=== PATIENT | male | born 1945 | race Caucasian/White ===

== ENCOUNTER 2022-12-08 09:54 | Outpatient (CLI) | payer MEDICARE, OTHER, SELFPAY ==
[2022-12-08 12:24] LABS: Hemoglobin A1C 5.7 % (<5.7)
== END 2022-12-08 09:55 | disposition home or self-care (01) ==
PROVIDERS: PCP Family Medicine; Visit Provider Urology
DX: N52.9 Male erectile dysfunction, unspecified (principal); Z01.818 Encounter for other preprocedural examination
CPT/HCPCS: 36415; 83036; 87086

== ENCOUNTER 2022-12-14 00:27 | Day surgery (SDC) | payer MEDICARE, OTHER, SELFPAY ==
[2022-12-08 10:22] VITALS: BP 143/83; PULSE 57; RESP 16; TEMP 36.6; O2SAT 98; BMI 28.5
--- NOTE | 2022-12-08 10:39 | PC.NURSE ---
Report to the Outpatient Waiting Room, entrance under the green pavilion located off [facility], at time __10:00AM on date ___12/14/22____. Planned Procedure Time: __12:00PM . Time changes happen often and if your time is changed the preop area will call you the afternoon before. - You and your visitor will be asked to self-screen and do not enter if you have any COVID symptoms. - Only one visitor is requested with a max of two and NO children visitors are allowed at this time. - The patient visitor may be requested to leave or wait in car when not with patient due to distancing restrictions. - A mask is optional within the hospital at this time. Patients may have clear liquids (water, carbonated beverages, clear teas, apple juice) until 3 hours prior to surgery with a maximum of 20 ounces. - No food from midnight until time of surgery Take the following medications with a SIP of water the morning of surgery: __LEVOFLOXACIN DO NOT STOP ANY OF YOUR OTHER PRESCRIPTION MEDICATIONS PRIOR TO SURGERY ?EXCEPT THE FOLLOWING Medications to discontinue per physician __HOLD ALL VITAMINS/SUPPLEMENTS 3 DAYS PRE-OP Date to take last dose____12/07/22 Please no make-up, nail mozambican, hairspray, perfume, deodorant, or body powder the day of surgery. No jewelry (including any body piercings) or valuables the day of surgery, leave them at home. Please take a shower or bath the night before, or the morning of, surgery with an antibacterial soap. Wear comfortable, loose fitting clothing. Children are encouraged to wear pajamas. - Jewelry must be removed prior to entering the operating room. Rings and piercings that are not removed may be cut off. - The hospital will not accept responsibility for valuables. - Please leave all valuables, including medications, at home the day of surgery. If you are going home after surgery, a licensed auto [place] driver must drive you home. - NO public transportation without another adult if you receive anesthesia. - We recommend that an adult stay with you for 24 hours following discharge. - We also recommend that you do not drive, make important decision, drink alcoholic beverages, or take any drugs that were not prescribed by your health care provider for at least 24 hours after your discharge time. Follow any additional instructions given to you from your surgeon. If you or anyone in your household have experienced Covid symptoms in the past week, please notify your surgeon or the nurse liaison at the phone number below for possible testing. Telephone instructions given to _PATIENT__and asked if any additional questions and then verbalized understanding. Patient advised to call surgeon office or pre surgery nurse liaison [phone] if any additional questions.
--- NOTE | 2022-12-08 10:49 | PC.NURSE ---
Report to the Outpatient Waiting Room, entrance under the green pavilion located off [facility], at time __10:00AM on date __12/14/22 . Planned Procedure Time: __12:00PM . Time changes happen often and if your time is changed the preop area will call you the afternoon before. - You and your visitor will be asked to self-screen and do not enter if you have any COVID symptoms. - Only one visitor is requested with a max of two and NO children visitors are allowed at this time. - The patient visitor may be requested to leave or wait in car when not with patient due to distancing restrictions. - A mask is optional within the hospital at this time. Patients may have clear liquids (water, carbonated beverages, clear teas, apple juice) until 3 hours prior to surgery with a maximum of 20 ounces. - No food from midnight until time of surgery Take the following medications with a SIP of water the morning of surgery: ___LEVOFLOXACIN DO NOT STOP ANY OF YOUR OTHER PRESCRIPTION MEDICATIONS PRIOR TO SURGERY ?EXCEPT THE FOLLOWING Medications to discontinue per physician ___HOLD ASPIRIN 7 DAYS PRE-OP- LAST DOSE 12/07/22, HOLD ALL VITAMINS/SUPPLEMENT 3 DAYS PRE-OP- LAST DOSE 01/07 Please no make-up, nail algerian, hairspray, perfume, deodorant, or body powder the day of surgery. No jewelry (including any body piercings) or valuables the day of surgery, leave them at home. Please take a shower or bath the night before, or the morning of, surgery with an antibacterial soap. Wear comfortable, loose fitting clothing. Children are encouraged to wear pajamas. - Jewelry must be removed prior to entering the operating room. Rings and piercings that are not removed may be cut off. - The hospital will not accept responsibility for valuables. - Please leave all valuables, including medications, at home the day of surgery. If you are going home after surgery, a licensed driver wheelchair must drive you home. - NO public transportation without another adult if you receive anesthesia. - We recommend that an adult stay with you for 24 hours following discharge. - We also recommend that you do not drive, make important decision, drink alcoholic beverages, or take any drugs that were not prescribed by your health care provider for at least 24 hours after your discharge time. Follow any additional instructions given to you from your surgeon. START LEVOFLOXACINON 12/13/22 START NOSE OINTMENT 12/09/22 START HIBICLENS SHOWER 12/11/22 If you or anyone in your household have experienced Covid symptoms in the past week, please notify your surgeon or the nurse liaison at the phone number below for possible testing. Telephone instructions given to __PATIENT and asked if any additional questions and then verbalized understanding. Patient advised to call surgeon office or pre surgery nurse liaison [phone] if any additional questions.
[2022-12-14] VITALS (11 sets, daily range): BP systolic 136–154; BP diastolic 73–90; PULSE 66–96; RESP 13–20; TEMP 36–37.1; O2SAT 92–100
--- NOTE | 2022-12-14 09:28 | ECG_ITS ---
Measurements Intervals [place] Rate: 69 P: 23 WI: 175 QRS: -24 QRSD: 101 T: 21 QT: 394 QTc: 425 Interpretive Statements SINUS RHYTHM NORMAL ECG NO PREVIOUS ECG AVAILABLE FOR COMPARISON Electronically Signed On 12-14-2022 11:14:30 [employer] by Gulshan Sparks D.O.
[2022-12-14] MEDS: LACTATED RINGERS 1,000 ML 30 ML IV CONT ×2 (11:00→15:40)
[2022-12-14] MEDS: GENTAMICIN SULFATE INJ 440 MG in DEXTROSE 5% 100 ML 100 MG IVPB (11:07)
--- NOTE | 2022-12-14 11:47 | P.PNAN_ITS ---
Anes - Initial Pre Proc Eval Procedure: Operation Date: 12/14/22 12:00 Proposed Procedures p Insertion Inflatable Penile Prosthesis - Lino Cochran MD Date/Time: 12/14/22 11:47 Surgeon: Lino Cochran MD Pre Op Diagnosis: Erectile Dysfunction Patient Data Age: 77 Gender: M Height: 1.75 m Weight: 87.8 kg Last Vital Signs Temp 36.6 C 12/08/22 10:22 Pulse 57 L 12/08/22 10:22 Resp 16 12/08/22 10:22 BP 143/83 H 12/08/22 10:22 Pulse Ox 98 12/08/22 10:22 O2 Del Method Room Air 12/08/22 10:22 Allergies Allergy/AdvReac Type Severity Reaction Status Date / Time Penicillins AdvReac Severe Rash Verified 12/14/22 10:43 Home Medications Medication Instructions Recorded Confirmed Type aspirin 81 mg tablet,delayed 81 mg PO DAILY 12/08/22 12/14/22 History release cholecalciferol (vitamin D3) 50 50 mcg PO DAILY 12/08/22 12/14/22 History mcg (2,000 unit) capsule ezetimibe 10 mg tablet 10 mg PO DAILY 12/08/22 12/14/22 History levofloxacin 500 mg tablet 500 mg PO BID 12/08/22 12/14/22 History losartan 100 mg tablet 100 mg PO QAM 12/08/22 12/14/22 History montelukast 10 mg tablet 10 mg PO DAILY PRN Congestion 12/08/22 12/14/22 History mupirocin 2 % topical ointment 1 applic topical BID 12/08/22 12/14/22 History omeprazole 40 mg capsule,delayed 40 mg PO QAM 12/08/22 12/14/22 History release rosuvastatin 5 mg tablet 5 mg PO EVERY OTHER DAY 12/08/22 12/14/22 History sildenafil 100 mg tablet 100 mg PO ONCE PRN Erectile 12/08/22 12/08/22 History Dysfunction tumeric 100 mg-karen 150 mg-olive 2 cap PO DAILY 12/08/22 12/14/22 History 50 mg-oreg 150 mg-caprylate capsule Patient hx anesthesia problems: none Family hx anesthesia problems: none Results Review: All pre-operative results and documents have been reviewed as part of the pre- operative evaluation. PMFSH Social History Social History Smoking status: Never smoker Alcohol intake: current Substance use: never Living arrangements: with family Additional living arrangements comments: Spiritual care concerns: No Anes - Eval Final PreProcedure Day of Procedure 12/14/22 11:47 Patient weight: overweight Heart: regular rate and rhythm Lungs: decreased breath sounds Airway: Mallampati scale class II Neurological: alert and oriented Last oral intake: >/= 8 hours ASA classification: III Emergent: no Anesthetic plan: proceed Anesthesia type and monitoring: general LMA and standard monitoring Results Review: All pre-operative results and documents have been reviewed as part of the pre- operative evaluation. Informed Consent: The patient's anesthetic plan and its attendant risks and benefits were discussed with the patient/family/POA. Questions were solicited and answers provided to the satisfaction of the patient/family/POA.
--- NOTE | 2022-12-14 11:59 | SUR.PREOP ---
1130-SUMMONED TO ROOM BY , PT WITH REDNESS OF FACE AND NECK WITH ITCHING OF SCALP. VANCOMYCIN AND GENTAMYCIN TURNED OFF. CALLED PLACE TO DR. WHITEHEAD. 1139-SPOKE WITH DR. WHITEHEAD, STATES TO TURN GENTAMYCIN BACK ON AND FINISH AND THEN TO RESTART VANCOMYCIN IF PT'S SYMPTOMS IMPROVE OR RESOLVE.
--- NOTE | 2022-12-14 12:28 | PM.IMHP ---
H&P: HPI History of Present Illness Date/Time: 12/14/22 12:28 Chief Complaint: ED [facility] Social History Social History Smoking status: Never smoker Alcohol intake: current Substance use: never Living arrangements: with family Additional living arrangements comments: Spiritual care concerns: No Meds Home Medications and Allergies Home Medications Medication Instructions Recorded Confirmed Type aspirin 81 mg tablet,delayed 81 mg PO DAILY 12/08/22 12/14/22 History release cholecalciferol (vitamin D3) 50 50 mcg PO DAILY 12/08/22 12/14/22 History mcg (2,000 unit) capsule ezetimibe 10 mg tablet 10 mg PO DAILY 12/08/22 12/14/22 History levofloxacin 500 mg tablet 500 mg PO BID 12/08/22 12/14/22 History losartan 100 mg tablet 100 mg PO QAM 12/08/22 12/14/22 History montelukast 10 mg tablet 10 mg PO DAILY PRN Congestion 12/08/22 12/14/22 History mupirocin 2 % topical ointment 1 applic topical BID 12/08/22 12/14/22 History omeprazole 40 mg capsule,delayed 40 mg PO QAM 12/08/22 12/14/22 History release rosuvastatin 5 mg tablet 5 mg PO EVERY OTHER DAY 12/08/22 12/14/22 History sildenafil 100 mg tablet 100 mg PO ONCE PRN Erectile 12/08/22 12/08/22 History Dysfunction tumeric 100 mg-karen 150 mg-olive 2 cap PO DAILY 12/08/22 12/14/22 History 50 mg-oreg 150 mg-caprylate capsule Allergies Allergy/AdvReac Type Severity Reaction Status Date / Time Penicillins AdvReac Severe Rash Verified 12/14/22 10:43 Vital Signs Vital Signs - 24 hr 12/14/22 11:17 Temperature 37.1 C Pulse Rate 66 Respiratory Rate 20 Blood Pressure 149/90 H Pulse Oximetry 99 Oxygen Delivery Room Air Exam Narrative: awake and alert abdomen soft, well healed incisions normal phallus, scrotum Assessment and Plan Assessment and plan (1) Erectile dysfunction due to arterial insufficiency: Code(s): N52.01 - Erectile dysfunction due to arterial insufficiency Status: Acute Assessment and Plan: - risks, benefits and alternatives discussed. Plan AMS IPP with right sided ectopic reservoir (2) UTI (urinary tract infection): Code(s): N39.0 - Urinary tract infection, site not specified Status: Acute Assessment and Plan: treatment in 10/2022. Repeat urine culture negative 11/2022
--- NOTE | 2022-12-14 12:31 | WPDHPUPDATE1 ---
History and Physical Update Update Date/Time: 12/14/22 12:31 History and Physical has been reviewed, including an updated exam of the patient. There are NO changes in the patient's condition. Risks, benefits, and alternatives have been discussed and questions answered. Patient agrees to proceed with procedure.
[2022-12-14] MEDS: ceFAZolin SODIUM 1 GM VIAL (13:43)
[2022-12-14] MEDS: BUPivacaine HCL 0.25% PF 30 ML VIAL INFILTRATE (13:44)
[2022-12-14] MEDS: LIDOCAINE HCL 1% LOCAL INJ 20 ML VIAL INFILTRATE (13:45)
--- NOTE | 2022-12-14 15:55 | W.PM.PROC2 ---
Procedure Note - Detailed Date of Procedure 12/14/22 Pre-op Diagnosis Erectile Dysfunction Post-op Diagnosis Same Procedure Performed 1. Insertion of 3-piece inflatable penile prosthesis. 2. Artificial erection using pharmacological agent. Surgeon Lino Cochran MD Anesthesia General Description of Procedure Informed consent obtained, patient taken to the operating room and given preoperative IV antibiotics with vancomycin and gentamicin. Additionally the patient has been taking oral levofloxacin and done a 3-day wash with Hibiclens. The patient was shaved. He was then prepped with Betadine scrub and paint followed by ChloraPrep. Sterile drapes were placed. We again prepped with ChloraPrep. A 16-Citizen Of [place] Almeida catheter was inserted with return of clear urine. We then performed a pharmacologically induced erection with dilute lidocaine. There was a symmetric, straight erection. We then made a penoscrotal 3 cm incision. We dissected bluntly down to identify the corporal bodies taking great care not to injure the urethra. Stay sutures of 2-0 PDS were placed in the corporal body. We sharply opened the corpora. We then serially dilated up to a 12 Haley dilator. We then measured the corpora. Measurements were 10.5 cm proximally and 9 cm distally. We irrigated and there was no injury. We then performed an identical procedure on the contralateral side. Measurements were 10.5 cm proximal, 9 cm distal. Dilators were placed into the corpora bilaterally confirming that there was no crossover. We elected to place an AMS LGX device 18 cm + 1.5 cm of rear tip extenders. We again irrigated the corporal bodies. We then inserted the prosthesis. We inflated using a surrogate reservoir and the device sat nicely with tips in the mid glans. We then deflated. We then closed the pre-placed 2-0 PDS sutures. We again inflated using the surrogate reservoir with an excellent cosmetic result. We then made a right lower quadrant incision for approximately 2 cm. We bluntly dissected down to the external oblique fascia. The fascia was opened. There was not significant rectus muscle present at this area, therefore a space was created inferior to the external oblique fascia. We then irrigated copiously. We pre-placed 0 Vicryl sutures. We placed the reservoir in the sub rectus space. We fill it with 100 mL and there was no back pressure. We then left 85mL in the reservoir. Our pre-placed external oblique fascia sutures were closed. We then made a subdartos pouch in the midline for the pump placement. It sat nicely in the inferior scrotum. We then closed the hiatus with 3-0 Vicryl suture. The tubing was then brought up to the abdominal incision. Using the quick connect device, we connected the pump to the reservoir. We then cycled the device again and it functioned nicely. We then removed the stay sutures through the glans. We then again irrigated copiously. We closed the scrotal incision with multiple 3-0 Vicryl sutures and then 3-0 Monocryl skin closure. The right lower quadrant incision was closed with 2-0 Vicryl to Yasmin's, 3-0 Vicryl deep dermal layer and a 4-0 Monocryl subcuticular closure. Glue was placed over all incisions. A compressive dressing was placed. Patient was awakened and taken to recovery room in stable condition. Urine Output 275 Complications No immediate complications Condition Stable Disposition PACU
--- NOTE | 2022-12-14 16:49 | SUR.PHASEI ---
1648: Tried to call report to floor RN but he/she needs to call back.
[2022-12-14 16:58] LABS: Hepatitis B Surface Antigen Negative (Negative)
[2022-12-14 17:15] LABS: HIV 1/2 Ab P24 Ag Result Negative (Negative); Hepatitis C Virus Antibody Negative (Negative)
--- NOTE | 2022-12-14 17:33 | ADMGEN ---
This patient, Minesh Collazo, was admitted to 3 [facility] Surg Room 310-01. Patient/family oriented to hospital policies and general routines including ID bracelet, bed and alarms, visiting hours, pain management, procedures, bathroom and other care routines, personal items, smoking policy, room service/diet, and visiting hours. Information on how to activate the Rapid Response Team has been discussed. Patient/Family are encouraged to report perceived risks to care and to ask questions if they do not understand what they are told or what they should do. Report from Rena.
[2022-12-14] MEDS: HYDROcodone/acetaminophen (*CRX) 5-325 MG TABLET 1 TAB PO ×2 (18:11→22:01)
[2022-12-14] MEDS: DEXTROSE 5%/0.45% SOD CHL 1,000 ML 125 ML IV CONT (18:12)
[2022-12-14] MEDS: DOCUSATE SODIUM 100 MG CAPSULE PO (18:12)
[2022-12-14] MEDS: MORPHINE SULFATE (*CRX) 2 MG/ML INJ IV PUSH ×2 (19:41→22:01)
[2022-12-15] MEDS: MORPHINE SULFATE (*CRX) 2 MG/ML INJ IV PUSH ×2 (00:05→06:45)
[2022-12-15 02:22] VITALS: BP 118/81; PULSE 80; RESP 16; TEMP 36.3; O2SAT 95
[2022-12-15] MEDS: HYDROcodone/acetaminophen (*CRX) 5-325 MG TABLET 1 TAB PO ×2 (03:00→08:50)
[2022-12-15] MEDS: DEXTROSE 5%/0.45% SOD CHL 1,000 ML 125 ML IV CONT (03:00)
[2022-12-15] MEDS: CHOLECALCIFEROL 1,000 UNITS TABLET 2000 UNITS PO (08:50)
[2022-12-15] MEDS: DOCUSATE SODIUM 100 MG CAPSULE PO (08:50)
[2022-12-15] MEDS: levoFLOXacin 500 MG TABLET PO (08:51)
[2022-12-15] MEDS: PANTOPRAZOLE 40 MG TABLET PO (08:51)
[2022-12-15] MEDS: LOSARTAN POTASSIUM 100 MG TABLET PO (08:51)
[2022-12-15] MEDS: ENOXAPARIN 30 MG/0.3 ML SYRINGE SUB-Q (08:51)
[2022-12-15] MEDS: EZETIMIBE 10 MG TABLET PO (08:51)
--- NOTE | 2022-12-15 09:07 | WPDANESPN ---
Anes - Prog Note Post-Op Date/Time: 12/15/22 09:07 Cardiovascular status: normal Airway patency: baseline Mental status: baseline Post-Op hydration status: normal Vital Signs: Last Vital Signs Temp 97.3 F L 12/15/22 02:22 Pulse 80 12/15/22 02:22 Resp 16 12/15/22 02:22 BP 118/81 12/15/22 02:22 Pulse Ox 95 12/15/22 02:22 O2 Del Method Room Air 12/14/22 20:00 O2 Flow Rate 6 12/14/22 15:55 Pain Score (VAS): 2 I/O: Intake & Output 12/14/22 12/15/22 12/15/22 23:59 07:59 15:59 Intake Total 700 1000 Output Total 380 1950 Balance 320 -950 12/14/22 15:53 Hep Bs Antigen Negative Hepatitis C Ab Screen Negative HIV 1&2 Ab/P24 Ag 4thGn Negative Post-procedural complaints: none Patient Feedback: Patient satisfied with anesthetic care.pt verbalized history of difficulty voiding and having bowel movement post surgery. has proctor catheter & states he is having some flatulence. encouraged pt to discuss concerns with surgeon.
--- NOTE | 2022-12-15 12:01 | WPDUROPN2 ---
Progress Note: A&P Assessment and Plan (1) Erectile dysfunction due to arterial insufficiency: Code(s): N52.01 - Erectile dysfunction due to arterial insufficiency Status: Acute Plan Patient had proctor removed, post filling of bladder with 460cc of NS 0.9% to induce a voiding trial. He urinated right away without difficulty. Apply scrotal support. We discussed discharge instructions. Patient can be discharged home when tolerating pain on PO medications. Subjective Subjective Date/Time Seen: 12/15/22 12:01 POD #! IPP Patient doing very well, tolerating activity and diet well. Post Op day: 1 Review of Systems Cardiovascular: Cardiovascular: Denies chest pain Respiratory: Respiratory: Reports no additional respiratory complaints Gastrointestinal: Gastrointestinal: Denies abdominal pain, Denies nausea and Denies vomiting Genitourinary: Genitourinary: Denies hematuria, Reports genital pain, Denies dysuria, Denies flank pain, Reports scrotal swelling, Denies urinary frequency, Denies urinary hesitancy and Denies urinary urgency Exam Const: General: cooperative and comfortable Resp: Effort & Inspection: normal respiratory effort Cardio: Rate: regular rate GI: Inspection: incision (alll are well approximated, minimal bruising, mildly tender upon palpation) GI Palp: Yes Soft to palpation and No Tenderness to palpation present (GI) : General: Yes no CVA tenderness Penis: Yes ecchymosis and No edematous Scrotum: ecchymosis and not edematous Urinary Catheter: Urinary Catheter: patent and draining and urine clear Extrem: Right lower extremity: no edema Left lower extremity: no edema Objective Data Vital Signs Vital Signs: Vital Signs - 24 hr 12/14/22 15:40 12/14/22 15:46 12/14/22 15:55 Temperature 98.1 F Pulse Rate 80 76 83 Respiratory Rate 16 16 20 Blood Pressure 137/77 136/83 148/83 H Pulse Oximetry 99 100 Oxygen Delivery Simple Face Mask Simple Face Mask Simple Face Mask Oxygen Flow Rate 6 6 6 12/14/22 16:10 12/14/22 16:25 12/14/22 16:40 Temperature Pulse Rate 84 82 84 Respiratory Rate 13 17 14 Blood Pressure 137/81 141/75 H 145/81 H Pulse Oximetry 98 95 96 Oxygen Delivery Room Air Room Air Room Air Oxygen Flow Rate 12/14/22 16:55 12/14/22 17:53 12/14/22 19:46 Temperature 96.8 F L 97.6 F Pulse Rate 88 82 84 Respiratory Rate 16 18 16 Blood Pressure 154/73 H 146/90 H 136/80 Pulse Oximetry 94 96 92 Oxygen Delivery Room Air Oxygen Flow Rate 12/14/22 20:00 12/14/22 23:17 12/15/22 02:22 Temperature 97.5 F L 97.3 F L Pulse Rate 96 80 Respiratory Rate 16 16 Blood Pressure 136/83 118/81 Pulse Oximetry 97 95 Oxygen Delivery Room Air Oxygen Flow Rate Intake/Output Intake/Output: Intake & Output 12/12/22 12/13/22 12/14/22 12/15/22 23:59 23:59 23:59 23:59 Intake Total 700 1370 Output Total 930 1950 Balance -230 -580 Meds/Results Medications: Active Medications Generic Name Dose Route Start Last Admin Trade Name Freq PRN Reason Stop Dose Admin Hydrocodone Bitart/Acetaminophen 1 tab 12/14/22 17:08 12/15/22 08:50 Hydrocodone/Acetaminophen (*Crx) 5-325 Mg Tablet PO 1 tab Q4H PRN Administration Pain Rated 1-6 Docusate Sodium 100 mg 12/14/22 17:08 12/15/22 08:50 Docusate Sodium 100 Mg Capsule PO 100 mg BID NANCY Administration Ezetimibe 10 mg 12/15/22 09:00 12/15/22 08:51 Ezetimibe 10 Mg Tablet PO 10 mg DAILY NANCY Administration Enoxaparin Sodium 30 mg 12/15/22 09:00 12/15/22 08:51 Enoxaparin 30 Mg/0.3 Ml Syringe SUB-Q 30 mg DAILY NANCY Administration Dextrose/Sodium Chloride 1,000 mls @ 125 mls/hr 12/14/22 17:08 12/15/22 03:00 Dextrose 5% Sodium Chloride 0.45% IV CONT 125 mls/hr .Q8H NANCY Administration Gentamicin Sulfate/Sodium Chloride 80 mg in 50 mls @ 100 mls/hr 12/15/22 15:54 Gentamicin 80mg/Sod Chl 50 Ml IVPB 12/15/22 16:23 ONCE ONE Levofloxacin 50
[2022-12-15] MEDS: GENTAMICIN 80MG/SOD CHL 50 ML 80 MG/50 ML BAG 100 MG IVPB (14:08)
== END 2022-12-15 11:57 | disposition home or self-care (01) ==
LOC: ANHSURGERY 09:50 → ANH3MEDSUR 12-15 12:01
PROVIDERS: PCP Family Medicine; Visit Provider Urology
PROC: (CPT 54405; principal; 2022-12-14 12:00)
DX: N52.01 Erectile dysfunction due to arterial insufficiency (principal); N39.0 Urinary tract infection, site not specified; N50.89 Other specified disorders of the male genital organs; I10 Essential (primary) hypertension; F10.90 Alcohol use, unspecified, uncomplicated; Z11.4 Encounter for screening for human immunodeficiency virus [HIV]; E78.00 Pure hypercholesterolemia, unspecified; Z85.46 Personal history of malignant neoplasm of prostate; Z79.82 Long term (current) use of aspirin; Z79.899 Other long term (current) drug therapy
CPT/HCPCS: 54405; 36415; 86703; 86803; 87340; 93005; A9270; C1813; G0378; G0432; J0690; J1100; J1170; J1580; J1650; J2270; J2405; J2704; J2710; J3010; J3370; J7030; J7120